=== PATIENT | female | born 1970 | race Caucasian/White ===

== ENCOUNTER 2019-12-25 10:56 | Outpatient (CLI) | payer BC, SELFPAY ==
--- NOTE | ~2019-12-25 | CT_ITS ---
EXAMINATION: CT abdomen w con DATE: 12/25/2019 11:28 INDICATION: Epigastric pain. Abdominal distention. Bowel resection. Hysterectomy. TECHNIQUE: Computed tomography (CT) of the abdomen and pelvis was performed with 100 cc Omnipaque 350 intravenous contrast. The dose-length product was 303.60 mGy-cm. Automated exposure control and iter ative reconstruction technique were employed. COMPARISON: CT dated 10/15/2006 FINDINGS: Lung bases unremarkable. Heart size normal. No pleural or pericardial effusion. Increased n umber and size of mesenteric and retroperitoneal lymph nodes which are not significantly changed, lik darrick reactive. Status post cholecystectomy with pneumobilia. The liver, spleen, pancreas, adrenal glan ds are unremarkable. There are bilateral extrarenal pelvis. Mild lumbar spondylosis. No osteolytic or osteoblastic lesions are identified. There are surgical changes seen consistent with small bowel alphonse stomosis. No obstruction. IMPRESSION: 1. No acute abdominal abnormality. Reviewed, dictated and finalized at location B.
== END 2019-12-25 10:57 ==
PROVIDERS: PCP Internal Medicine; Visit Provider Surgery
DX: R10.13 Epigastric pain (principal)
CPT/HCPCS: 74160; Q9967

== ENCOUNTER 2020-01-19 13:51 | Outpatient (CLI) | payer BC, SELFPAY ==
--- NOTE | ~2020-01-19 | MR_ITS ---
EXAMINATION: MR brain/brain stem wo/w con EXAM DATE: 01/19/2020 14:52 INDICATION: Sinus issues. Vertigo. TECHNIQUE: Magnetic resonance imaging (MRI) of the brain/brain stem obtained without contrast. Sagit lewis T1, axial diffusion, gradient echo (T2*), T1, T2, FLAIR sequences obtained. Patient was then inj ected with 10 cc intravenous Multihance contrast. Axial and coronal postcontrast T1 weighted sequence s obtained. There is no prior study for comparison. FINDINGS: There are no areas of restricted diffusion to suggest acute infarction. There is no acute hemorrhage seen on the T2*, a hemosiderin sensitive sequence. No intraparenchymal brain mass. The ve ntricles are normal in size. There are no extra-axial collections. Flow voids are seen in the cereb ral arteries on the T2-weighted sequences consistent with their expected patency. The orbits are unr emarkable. Soft tissue is unremarkable. There are no areas of abnormal enhancement on the postcont rast images. Small left maxillary sinus mucous retention cyst. IMPRESSION: 1. Unremarkable brain MRI examination. Reviewed, dictated and finalized at location A.
[2020-01-19 14:27] LABS: Estimated Glomerular Filt Rate > 60
== END 2020-01-19 13:52 | disposition home or self-care (01) ==
LOC: ANHIMG 13:53
PROVIDERS: PCP Internal Medicine; Visit Provider Internal Medicine
DX: E06.3 Autoimmune thyroiditis (principal); F31.81 Bipolar II disorder; G93.89 Other specified disorders of brain; I10 Essential (primary) hypertension; R42 Dizziness and giddiness
CPT/HCPCS: 36415; 70553; A9577

== ENCOUNTER → 2022-01-30 15:48 | Outpatient (CLI) | payer BC, SELFPAY ==
--- NOTE | ~2022-01-30 | DEXA_ITS ---
Bone Density Report Name: MICHELLE JC Age: 51 Sex: Female Ethnicity: White Date of : 1970 Indication: postmenopausal; screening for osteoporosis; parental hip fracture; hysterectomy; Referring Provider: Gurpreet, Liliana Study: Bone densitometry was performed. Exam Date: January 30, 2022 Accession number: [id number] Bone Density: Region BMD T-score Z-score Classification AP Spine (L1-L4) 1.095 0.4 1.2 Normal Femoral Neck (Left) 0.789 -0.5 0.2 Normal Total Hip (Left) 0.988 0.4 0.9 Normal Femoral Neck (Right) 0.817 -0.3 0.5 Normal Total Hip (Right) 0.981 0.3 0.8 Normal Total Hip Mean 0.985 0.4 0.9 Normal World Health Organization criteria for BMD impression classify patients as: Normal (T-score at or above -1.0), Osteopenia (T-score between -1.0 and -2.5), or Osteoporosis (T-score at or below -2.5). 10-year Fracture Risk: FRAX not reported because: All T-scores for Spine Total, Hip Total, Femoral Neck at or above -1.0 Treated for osteoporosis Clinical Information Provided by Patient: Parent has had a hip fracture Is being treated for osteoporosis Has used the following medications: Vitamin D, Calcium Has the following medical conditions: Hysterectomy Patient maximum height was 67 Menopause Age: 36 Drinks caffeinated beverages Onset of menses at age 16 Number of children 1 Impression: The patient has normal bone mass. The patient has risk factors, including: parental hip fracture. Discussion: It is important to ask patients whether they are taking their medications and to encourage continued and appropriate compliance with their osteoporosis therapies to reduce fracture risk. It is also important to review their risk factors and encourage appropriate calcium and vitamin D intakes, exercise, fall prevention and other lifestyle measures. Follow-Up: Consider a repeat BMD and Vertebral Fracture Assessment (VFA) exam in 2 years or sooner if medically necessary, to reassess this patient's status. Reported by: ANA LUISA on 01/30/2022 4:12:00 PM. Reviewed, dictated and finalized at location A. SALEEM
--- NOTE | ~2022-01-30 | MM_ITS ---
EXAMINATION: MM screening best BI w rj HISTORY: Screening mammogram TECHNIQUE: Craniocaudal and mediolateral oblique 3-D tomosynthesis images were obtained and synthetic 2-D images were generated. CAD analysis was submitted and interpreted. COMPARISON: 04/23/2017 bilateral diagnostic mammography and Limited bilateral breast ultrasound exami nation bilateral screening mammogram BREAST PARENCHYMAL COMPOSITION: The breasts are extremely dense, which lowers the sensitivity of mamm ography. FINDINGS: There is no evidence of suspicious mass, calcification, or architectural distortion to sugg est malignancy in either breast. There has been no suspicious interval change. IMPRESSION: 1. No mammographic evidence of malignancy. 2. Recommend routine screening mammography in one year. BI-RADS Category 1: Negative Reviewed, dictated and finalized at location A.
== END ==
PROVIDERS: PCP Nurse Practitioner; Visit Provider Nurse Practitioner
DX: Z12.31 Encounter for screening mammogram for malignant neoplasm of breast (principal); Z13.820 Encounter for screening for osteoporosis; Z78.0 Asymptomatic menopausal state
CPT/HCPCS: 77063; 77067; 77080

== ENCOUNTER 2024-11-10 08:55 | Outpatient (CLI) | payer BC, SELFPAY ==
--- NOTE | ~2024-11-10 | XR_ITS ---
Lumbosacral Spine: AP and lateral views Clinical History: Pain Findings: There is dextroscoliosis of the lumbar spine. There is a 5 mm retrolisthesis of L2 over L3. There is severe facet arthropathy throughout the lumbar spine. There is advanced degenerative disc n arrowing at L2-L3. There is mild degenerative disc narrowing at L1-L2 and L3-L4.. The sacroiliac marisela nts are normally outlined. Impression: Moderate to advanced degenerative spondylosis overall, as detailed above. Reviewed, dictated and finalized at location M. Impression: Moderate to advanced degenerative spondylosis overall, as detailed above.
== END 2024-11-10 08:56 | disposition home or self-care (01) ==
LOC: MICIMG 08:57
PROVIDERS: PCP Internal Medicine; Visit Provider Internal Medicine
DX: M47.896 Other spondylosis, lumbar region (principal)
CPT/HCPCS: 72100